=== PATIENT | male | born 1955 | race Two or more races ===

== ENCOUNTER 2023-06-09 16:51 | Emergency (ER) | payer MEDICARE, OTHER ==
[~2023-06-09] VITALS: Ht 175.3 cm; Wt 83.4 kg
[2023-06-09] MEDS ORDERED: ceFAZolin 1GM/50ML 50 ML IV ONE (17:30)
[2023-06-09] MEDS ORDERED: IBUP-1455 PO (18:19)
[2023-06-09] MEDS ORDERED: CLIN300C70 PO (18:19)
[2023-06-09 21:05] VITALS: BP 111/68; PULSE 73; RESP 18; TEMP 98.4; O2SAT 96
== END 2023-06-09 21:10 | disposition home or self-care (01) ==
LOC: ER 16:51
DX: L03.114 Cellulitis of left upper limb (principal); Z88.0 Allergy status to penicillin
CPT/HCPCS: 96365; 99284; J0690